=== PATIENT | female | born 1995 | race Caucasian/White ===

== ENCOUNTER 2024-06-04 16:48 | Emergency (ER) | payer SELFPAY ==
[~2024-06-04] VITALS: Ht 160 cm; Wt 93.2 kg
[2024-06-04 16:51] VITALS: TEMP 98.1
[2024-06-04] MEDS ORDERED: Ketorolac 15 MG/ML VIAL IV ONE (18:15)
[2024-06-04] MEDS ORDERED: Ondansetron 4 MG/2 ML VIAL IV ONE (18:15)
[2024-06-04] MEDS ORDERED: NS 1,000 ML IV ONE (18:15)
[2024-06-04 19:45] VITALS: BP 121/74; PULSE 76
== END 2024-06-04 19:49 | disposition home or self-care (01) ==
LOC: COL.ER 16:48
DX: R51.9 Headache, unspecified (principal); R11.2 Nausea with vomiting, unspecified
CPT/HCPCS: J1885; J2405; J7030